=== PATIENT | female | born 1955 | race Asian ===

== ENCOUNTER 2020-01-17 16:12 | Emergency (ER) | payer SELFPAY ==
[~2020-01-17] VITALS: Ht 160 cm; Wt 68.0 kg
[2020-01-17 16:37] VITALS: Ht 160 cm; Wt 68.0 kg
[2020-01-17 18:29] VITALS: BP 123/68
== END 2020-01-17 18:29 | disposition home or self-care (01) ==
LOC: ED 16:12
DX: S86.912A Strain of unspecified muscle(s) and tendon(s) at lower leg level, left leg, initial encounter (principal); X58.XXXA Exposure to other specified factors, initial encounter; Y93.89 Activity, other specified; Y92.89 Other specified places as the place of occurrence of the external cause; Y99.8 Other external cause status